=== PATIENT | male | born 1955 | race Caucasian/White ===

== ENCOUNTER 2018-01-20 22:54 | Inpatient (IN) | payer OTHER ==
[2018-01-21] MEDS: LORAZEPAM 2 MG INJ IV
[2018-01-21] MEDS ORDERED: ONDANSETRON 4 MG INJ IV
[2018-01-21 00:55] LABS: ADD MAN DIFF? NO
[2018-01-21 01:00] LABS: ABNORMAL IP MESSAGE 1; BASOPHILS % 0.6 % (0.0-2.0); EOSINOPHILS % 0.4 % (0.0-7.0); HEMATOCRIT 31.6 % (42.0-52.0); HEMOGLOBIN 10.7 g/dl (14.0-18.0); LYMPHOCYTES # 1.5 10^3/ul (0.8-2.9); MEAN CORPUSCULAR HEMOGLOBIN 37.5 pg (29.0-33.0); MEAN CORPUSCULAR HGB CONC 33.9 g/dl (32.0-37.0); MEAN CORPUSCULAR VOLUME 110.9 fl (82.0-101.0); MEAN PLATELET VOLUME 11.2 fl (7.4-10.4); MONOCYTE # 0.8 10^3/ul (0.3-0.9); NEUTROPHIL # 4.6 10^3/ul (1.6-7.5); NEUTROPHILS % 65.4 % (39.0-77.0); PLATELET COUNT 91 10^3/UL (140-415); POSITIVE DIFF @See below; RED BLOOD COUNT 2.85 10^6/ul (4.70-6.10); RED CELL DISTRIBUTION WIDTH 12.6 % (11.5-14.5)
[2018-01-21 01:15] LABS: IRON 61 ug/dl (35-150)
[2018-01-21 01:16] LABS: MAGNESIUM 2.3 mg/dl (1.7-2.5)
[2018-01-21 01:16] LABS: PHOSPHORUS 2.9 mg/dl (2.5-4.9)
[2018-01-21] MEDS: SOD CHLORIDE 0.9% 1,000 ML IV ×5 (01:19→21:00)
[2018-01-21 01:25] LABS: % IRON SATURATION 33 % SAT (22-52); TOTAL IRON BINDING CAPACITY 183 ug/dl (241-421)
[2018-01-21] MEDS: MULTIVITAMINS 10 ML, THIAMINE 100 MG, FOLIC ACID 1 MG in SOD CHLORIDE 0.9% 1,000 ML IVPB (09:17)
[2018-01-21] MEDS: PANTOPRAZOLE IV 80 MG in SOD CHLORIDE 0.9% 100 ML IV ×2 (11:01→21:31)
[2018-01-21] MEDS: CHLORDIAZEPOXIDE 25 MG CAP PO ×3 (11:07→22:33)
[2018-01-21] MEDS: SUCRALFATE 1 GM TAB PO ×2 (17:32→21:32)
[2018-01-22] MEDS: PANTOPRAZOLE IV 80 MG in SOD CHLORIDE 0.9% 100 ML IV ×3 (04:00→23:24)
[2018-01-22] MEDS: SOD CHLORIDE 0.9% 1,000 ML IV (05:59)
[2018-01-22 07:26] LABS: ADD MAN DIFF? NO
[2018-01-22 07:28] LABS: WHITE BLOOD COUNT 6.4 10^3/ul (4.8-10.8)
[2018-01-22 07:28] LABS: BASOPHILS % 0.5 % (0.0-2.0); EOSINOPHILS # 0.2 10^3/ul (0.0-0.5); EOSINOPHILS % 2.3 % (0.0-7.0); HEMATOCRIT 30.2 % (42.0-52.0); HEMOGLOBIN 9.8 g/dl (14.0-18.0); LYMPHOCYTES # 1.1 10^3/ul (0.8-2.9); LYMPHOCYTES % 16.7 % (15.0-51.0); MEAN CORPUSCULAR HGB CONC 32.5 g/dl (32.0-37.0); MEAN PLATELET VOLUME 10.9 fl (7.4-10.4); MONOCYTE # 0.6 10^3/ul (0.3-0.9); MONOCYTES % 9.7 % (0.0-11.0); NEUTROPHIL # 4.5 10^3/ul (1.6-7.5); NEUTROPHILS % 70.3 % (39.0-77.0); POSITIVE DIFF @See below; RED BLOOD COUNT 2.72 10^6/ul (4.70-6.10); RED CELL DISTRIBUTION WIDTH 12.6 % (11.5-14.5)
[2018-01-22 07:32] LABS: PLATELET COUNT 111 10^3/UL (140-415)
[2018-01-22 07:48] LABS: INR 0.97
[2018-01-22 08:07] LABS: ANION GAP 12 (8-16); BLOOD UREA NITROGEN 14 mg/dl (7-20); CALCIUM 8.2 mg/dl (8.4-10.2); CARBON DIOXIDE 18 mmol/L (21-31); CHLORIDE 113 mmol/L (97-110); CREATININE 0.54 mg/dl (0.61-1.24); MAGNESIUM 1.5 mg/dl (1.7-2.5); PHOSPHORUS 2.3 mg/dl (2.5-4.9); POTASSIUM 3.6 mmol/L (3.5-5.1); SODIUM 139 mmol/L (135-144)
[2018-01-22 08:10] LABS: GLUCOSE 47 mg/dl (70-220)
[2018-01-22] MEDS: CHLORDIAZEPOXIDE 25 MG CAP PO ×2 (08:15→19:05)
[2018-01-22] MEDS: SUCRALFATE 1 GM TAB PO ×4 (08:15→20:50)
[2018-01-22] MEDS: MULTIVITAMINS 10 ML, THIAMINE 100 MG, FOLIC ACID 1 MG in SOD CHLORIDE 0.9% 1,000 ML IVPB (11:41)
[2018-01-22] MEDS: D5W-0.45 NACL + KCL 20 MEQ 1,000 ML IV ×2 (13:26→20:52)
[2018-01-22] MEDS: CEFTRIAXONE 1 GM/50 ML (PMX) 50 ML IVPB (13:28)
[2018-01-22] MEDS: POTASSIUM PHOSPHATE 20 MEQ in SOD CHLORIDE 0.9% 250 ML IVPB (14:19)
[2018-01-22] MEDS: AZITHROMYCIN 500MG/NS (PMX) 250 ML IVPB (14:20)
[2018-01-22] MEDS: MAGNESIUM SULFATE 4 GM/100 ML 100 ML IVPB (20:51)
[2018-01-23] MEDS: CHLORDIAZEPOXIDE 25 MG CAP PO ×2 (05:17→14:28)
[2018-01-23] MEDS: SUCRALFATE 1 GM TAB PO ×4 (08:42→20:46)
[2018-01-23] MEDS: MULTIVITAMINS 10 ML, THIAMINE 100 MG, FOLIC ACID 1 MG in SOD CHLORIDE 0.9% 1,000 ML IVPB (08:42)
[2018-01-23 09:03] LABS: ADD MAN DIFF? NO
[2018-01-23 09:25] LABS: BASOPHILS % 0.5 % (0.0-2.0); EOSINOPHILS # 0.2 10^3/ul (0.0-0.5); HEMOGLOBIN 10.5 g/dl (14.0-18.0); LYMPHOCYTES # 0.8 10^3/ul (0.8-2.9); LYMPHOCYTES % 13.8 % (15.0-51.0); MEAN CORPUSCULAR HEMOGLOBIN 36.3 pg (29.0-33.0); MEAN CORPUSCULAR HGB CONC 32.8 g/dl (32.0-37.0); MEAN CORPUSCULAR VOLUME 110.7 fl (82.0-101.0); MEAN PLATELET VOLUME 11.2 fl (7.4-10.4); MONOCYTE # 0.6 10^3/ul (0.3-0.9); NEUTROPHIL # 4.1 10^3/ul (1.6-7.5); NEUTROPHILS % 71.5 % (39.0-77.0); PLATELET COUNT 119 10^3/UL (140-415); POSITIVE DIFF @See below; RED BLOOD COUNT 2.89 10^6/ul (4.70-6.10); RED CELL DISTRIBUTION WIDTH 12.2 % (11.5-14.5)
[2018-01-23 09:25] LABS: WHITE BLOOD COUNT 5.7 10^3/ul (4.8-10.8)
[2018-01-23 09:37] LABS: ALANINE AMINOTRANSFERASE 27 IU/L (13-69); ALBUMIN 2.2 g/dl (3.3-4.9); ALKALINE PHOSPHATASE 55 IU/L (42-121); ANION GAP 10 (8-16); ASPARTATE AMINO TRANSFERASE 35 IU/L (15-46); BILIRUBIN,INDIRECT 0.6 mg/dl (0-1.1); BILIRUBIN,TOTAL 0.6 mg/dl (0.2-1.3); BLOOD UREA NITROGEN 5 mg/dl (7-20); CARBON DIOXIDE 22 mmol/L (21-31); CHLORIDE 109 mmol/L (97-110); CREATININE 0.39 mg/dl (0.61-1.24); GLUCOSE 105 mg/dl (70-220); POTASSIUM 3.6 mmol/L (3.5-5.1); SODIUM 137 mmol/L (135-144); TOTAL PROTEIN 4.4 g/dl (6.1-8.1)
[2018-01-23] MEDS: PANTOPRAZOLE IV 80 MG in SOD CHLORIDE 0.9% 100 ML IV (10:32)
[2018-01-23] MEDS: CEFTRIAXONE 1 GM/50 ML (PMX) 50 ML IVPB (14:28)
[2018-01-23] MEDS: AZITHROMYCIN 500MG/NS (PMX) 250 ML IVPB (14:57)
[2018-01-23] MEDS: HYDROCODONE/APAP (5/325) TAB PO ×2 (14:58→20:46)
[2018-01-23] MEDS ORDERED: ACETAMINOPHEN 325 MG TAB PO (15:00)
[2018-01-23] MEDS ORDERED: morphine 2 MG INJ IV (15:00)
[2018-01-23] MEDS: D5W-0.45 NACL + KCL 20 MEQ 1,000 ML IV ×2 (17:37)
[2018-01-23] MEDS: PANTOPRAZOLE (EC) 40 MG TAB PO (17:37)
[2018-01-24] MEDS: PANTOPRAZOLE (EC) 40 MG TAB PO ×2 (05:29→18:27)
[2018-01-24] MEDS: D5W-0.45 NACL + KCL 20 MEQ 1,000 ML IV ×2 (05:29→15:30)
[2018-01-24] MEDS: CHLORDIAZEPOXIDE 25 MG CAP PO ×2 (05:29→20:50)
[2018-01-24] MEDS: HYDROCODONE/APAP (5/325) TAB PO ×3 (05:29→22:53)
[2018-01-24 07:50] LABS: ADD MAN DIFF? NO
[2018-01-24 08:04] LABS: WHITE BLOOD COUNT 5.8 10^3/ul (4.8-10.8)
[2018-01-24 08:04] LABS: BASOPHILS % 0.7 % (0.0-2.0); EOSINOPHILS # 0.3 10^3/ul (0.0-0.5); EOSINOPHILS % 5.2 % (0.0-7.0); HEMATOCRIT 32.7 % (42.0-52.0); LYMPHOCYTES # 1.2 10^3/ul (0.8-2.9); MEAN CORPUSCULAR HEMOGLOBIN 35.9 pg (29.0-33.0); MEAN CORPUSCULAR HGB CONC 33.6 g/dl (32.0-37.0); MEAN CORPUSCULAR VOLUME 106.9 fl (82.0-101.0); MEAN PLATELET VOLUME 11.7 fl (7.4-10.4); MONOCYTE # 0.7 10^3/ul (0.3-0.9); MONOCYTES % 12.2 % (0.0-11.0); NEUTROPHIL # 3.6 10^3/ul (1.6-7.5); NEUTROPHILS % 61.2 % (39.0-77.0); PLATELET COUNT 116 10^3/UL (140-415); POSITIVE DIFF @See below; RED BLOOD COUNT 3.06 10^6/ul (4.70-6.10); RED CELL DISTRIBUTION WIDTH 12.1 % (11.5-14.5)
[2018-01-24 08:25] LABS: ANION GAP 9 (8-16); BLOOD UREA NITROGEN 3 mg/dl (7-20); CALCIUM 7.9 mg/dl (8.4-10.2); CARBON DIOXIDE 22 mmol/L (21-31); CHLORIDE 109 mmol/L (97-110); CREATININE 0.46 mg/dl (0.61-1.24); GLUCOSE 86 mg/dl (70-220); MAGNESIUM 1.4 mg/dl (1.7-2.5); PHOSPHORUS 2.1 mg/dl (2.5-4.9); POTASSIUM 4.1 mmol/L (3.5-5.1); SODIUM 136 mmol/L (135-144)
[2018-01-24] MEDS: MULTIVITAMINS 10 ML, THIAMINE 100 MG, FOLIC ACID 1 MG in SOD CHLORIDE 0.9% 1,000 ML IVPB (09:08)
[2018-01-24] MEDS: SUCRALFATE 1 GM TAB PO ×4 (09:08→21:32)
[2018-01-24] MEDS: CEFTRIAXONE 1 GM/50 ML (PMX) 50 ML IVPB (13:47)
[2018-01-24] MEDS: AZITHROMYCIN 500MG/NS (PMX) 250 ML IVPB (14:41)
[2018-01-24 19:52] LABS: OCCULT BLOOD STOOL POSITIVE (NEGATIVE)
[2018-01-24] MEDS: morphine LIQ (10 MG/5 ML) CUP PO (20:51)
[2018-01-25] MEDS: morphine LIQ (10 MG/5 ML) CUP PO ×4 (01:01→20:38)
[2018-01-25] MEDS: D5W-0.45 NACL + KCL 20 MEQ 1,000 ML IV ×3 (01:30→21:30)
[2018-01-25] MEDS: CHLORDIAZEPOXIDE 25 MG CAP PO ×2 (03:12→22:39)
[2018-01-25] MEDS: HYDROCODONE/APAP (5/325) TAB PO ×2 (04:53→17:24)
[2018-01-25] MEDS: PANTOPRAZOLE (EC) 40 MG TAB PO ×2 (05:49→17:24)
[2018-01-25] MEDS: SUCRALFATE 1 GM TAB PO ×4 (08:47→20:38)
[2018-01-25] MEDS: MULTIVITAMINS 10 ML, THIAMINE 100 MG, FOLIC ACID 1 MG in SOD CHLORIDE 0.9% 1,000 ML IVPB (08:48)
[2018-01-25] MEDS: CEFTRIAXONE 1 GM/50 ML (PMX) 50 ML IVPB (13:51)
[2018-01-25] MEDS: AZITHROMYCIN 500MG/NS (PMX) 250 ML IVPB (14:57)
[2018-01-26] MEDS: HYDROCODONE/APAP (5/325) TAB PO ×3 (03:18→20:14)
[2018-01-26] MEDS: morphine LIQ (10 MG/5 ML) CUP PO ×3 (06:10→16:40)
[2018-01-26] MEDS: PANTOPRAZOLE (EC) 40 MG TAB PO ×2 (06:10→17:58)
[2018-01-26] MEDS: SUCRALFATE 1 GM TAB PO ×4 (08:43→20:13)
[2018-01-26] MEDS: D5W-0.45 NACL + KCL 20 MEQ 1,000 ML IV ×2 (08:43→17:30)
[2018-01-26] MEDS: MULTIVITAMINS 10 ML, THIAMINE 100 MG, FOLIC ACID 1 MG in SOD CHLORIDE 0.9% 1,000 ML IVPB (09:57)
[2018-01-26] MEDS: CEFTRIAXONE 1 GM/50 ML (PMX) 50 ML IVPB (12:21)
[2018-01-26] MEDS: AZITHROMYCIN 500MG/NS (PMX) 250 ML IVPB (14:59)
[2018-01-27] MEDS: morphine LIQ (10 MG/5 ML) CUP PO ×4 (02:33→21:02)
[2018-01-27] MEDS: PANTOPRAZOLE (EC) 40 MG TAB PO ×2 (05:36→16:58)
[2018-01-27] MEDS: HYDROCODONE/APAP (5/325) TAB PO ×2 (05:36→16:58)
[2018-01-27] MEDS: D5W-0.45 NACL + KCL 20 MEQ 1,000 ML IV (05:37)
[2018-01-27] MEDS: SUCRALFATE 1 GM TAB PO ×4 (09:03→21:01)
[2018-01-27] MEDS: MULTIVITAMINS 10 ML, THIAMINE 100 MG, FOLIC ACID 1 MG in SOD CHLORIDE 0.9% 1,000 ML IVPB (09:03)
[2018-01-27] MEDS: CEFTRIAXONE 1 GM/50 ML (PMX) 50 ML IVPB (12:30)
[2018-01-27] MEDS: LORAZEPAM 1 MG TAB PO (18:49)
[2018-01-28] MEDS: HYDROCODONE/APAP (5/325) TAB PO ×3 (02:15→16:20)
[2018-01-28] MEDS: PANTOPRAZOLE (EC) 40 MG TAB PO ×2 (05:41→17:07)
[2018-01-28] MEDS: morphine LIQ (10 MG/5 ML) CUP PO ×2 (05:41→18:42)
[2018-01-28] MEDS: LEVALBUTEROL (NEB) 0.63 MG/3 ML AMP HHN ×2 (05:56→08:11)
[2018-01-28] MEDS: MULTIVITAMINS 10 ML, THIAMINE 100 MG, FOLIC ACID 1 MG in SOD CHLORIDE 0.9% 1,000 ML IVPB (09:11)
[2018-01-28] MEDS: SUCRALFATE 1 GM TAB PO ×4 (09:11→22:00)
[2018-01-28] MEDS: FUROSEMIDE 20 MG INJ IV (18:38)
[2018-01-29] MEDS: HYDROCODONE/APAP (5/325) TAB PO ×3 (05:10→23:43)
[2018-01-29] MEDS: PANTOPRAZOLE (EC) 40 MG TAB PO ×2 (05:10→16:53)
[2018-01-29 07:19] LABS: ADD MAN DIFF? NO
[2018-01-29 07:23] LABS: WHITE BLOOD COUNT 7.4 10^3/ul (4.8-10.8)
[2018-01-29 07:23] LABS: BASOPHIL # 0.1 10^3/ul (0.0-0.1); BASOPHILS % 0.7 % (0.0-2.0); EOSINOPHILS # 0.4 10^3/ul (0.0-0.5); EOSINOPHILS % 4.9 % (0.0-7.0); HEMATOCRIT 28.6 % (42.0-52.0); HEMOGLOBIN 9.6 g/dl (14.0-18.0); IMMATURE GRANS #M 0.02 10^3/ul; IMMATURE GRANS % (M) 0.3 %; LYMPHOCYTES # 1.2 10^3/ul (0.8-2.9); LYMPHOCYTES % 16.3 % (15.0-51.0); MEAN CORPUSCULAR HEMOGLOBIN 36.8 pg (29.0-33.0); MEAN CORPUSCULAR HGB CONC 33.6 g/dl (32.0-37.0); MEAN CORPUSCULAR VOLUME 109.6 fl (82.0-101.0); MEAN PLATELET VOLUME 10.1 fl (7.4-10.4); MONOCYTE # 0.9 10^3/ul (0.3-0.9); MONOCYTES % 12.5 % (0.0-11.0); NEUTROPHIL # 4.8 10^3/ul (1.6-7.5); NEUTROPHILS % 65.3 % (39.0-77.0); PLATELET COUNT 259 10^3/UL (140-415); RED BLOOD COUNT 2.61 10^6/ul (4.70-6.10); RED CELL DISTRIBUTION WIDTH 12.2 % (11.5-14.5)
[2018-01-29 07:45] LABS: ANION GAP 5 (8-16); BLOOD UREA NITROGEN 5 mg/dl (7-20); CALCIUM 8.3 mg/dl (8.4-10.2); CARBON DIOXIDE 34 mmol/L (21-31); CHLORIDE 101 mmol/L (97-110); CREATININE 0.51 mg/dl (0.61-1.24); GLUCOSE 89 mg/dl (70-220); POTASSIUM 3.3 mmol/L (3.5-5.1); SODIUM 137 mmol/L (135-144)
[2018-01-29] MEDS: SUCRALFATE 1 GM TAB PO ×4 (09:04→20:23)
[2018-01-29] MEDS: POTASSIUM CHLORIDE (SR) 20 MEQ TAB PO (10:56)
[2018-01-29] MEDS: FUROSEMIDE 20 MG INJ IV (12:21)
[2018-01-29] MEDS: morphine LIQ (10 MG/5 ML) CUP PO ×2 (14:26→20:23)
[2018-01-30] MEDS: PANTOPRAZOLE (EC) 40 MG TAB PO ×2 (05:57→17:16)
[2018-01-30] MEDS: morphine LIQ (10 MG/5 ML) CUP PO ×3 (05:58→22:04)
[2018-01-30] MEDS: SUCRALFATE 1 GM TAB PO ×4 (08:20→22:03)
[2018-01-30] MEDS: HYDROCODONE/APAP (5/325) TAB PO (16:04)
[2018-01-31] MEDS: PANTOPRAZOLE (EC) 40 MG TAB PO (06:38)
[2018-01-31] MEDS: HYDROCODONE/APAP (5/325) TAB PO (06:38)
[2018-01-31] MEDS: SUCRALFATE 1 GM TAB PO ×2 (08:40→11:57)
[2018-01-31] MEDS: morphine LIQ (10 MG/5 ML) CUP PO (11:57)
== END 2018-01-31 15:30 | DRG 377 ==
LOC: PP2 01-26 02:19 → TEL 01-28 12:48
PROVIDERS: Hospitalist
DX: K92.0 Hematemesis (principal); J18.9 Pneumonia, unspecified organism; E44.0 Moderate protein-calorie malnutrition; Z68.1 Body mass index [BMI] 19.9 or less, adult; F10.239 Alcohol dependence with withdrawal, unspecified; F10.10 Alcohol abuse, uncomplicated; K92.1 Melena; I95.9 Hypotension, unspecified; I10 Essential (primary) hypertension; D69.6 Thrombocytopenia, unspecified; J44.9 Chronic obstructive pulmonary disease, unspecified; Z72.0 Tobacco use; E86.0 Dehydration; F60.3 Borderline personality disorder; Z79.1 Long term (current) use of non-steroidal anti-inflammatories (NSAID); D53.9 Nutritional anemia, unspecified; R26.9 Unspecified abnormalities of gait and mobility; I11.0 Hypertensive heart disease with heart failure; I50.9 Heart failure, unspecified
CPT/HCPCS: 71045; 71046; 76705; 80048; 80053; 82270; 82728; 82962; 83540; 83735; 84100; 84443; 85025; 85610; 87081; 93005; 93306; 93971; 94640; 94664; 97110; 97116; 97163; 97530

== ENCOUNTER 2018-07-03 19:15 | Inpatient (IN) | payer OTHER ==
[2018-07-03] MEDS ORDERED: NACL 0.9% 3 ML SYG IV (21:30)
[2018-07-03] MEDS ORDERED: ACETAMINOPHEN 325 MG TAB PO (21:30)
[2018-07-03] MEDS: METHYLPREDNISOLONE 40 MG INJ IV ×2 (21:34→22:00)
[2018-07-03] MEDS: morphine SULFATE/PF (2 MG/2 ML) SYG IV (21:35)
[2018-07-03] MEDS: ALBUTEROL/IPRATROPIUM (NEB) 3 ML AMP HHN (21:52)
[2018-07-03 22:04] LABS: ADD MAN DIFF? NO
[2018-07-03 22:06] LABS: WHITE BLOOD COUNT 6.9 10^3/ul (4.8-10.8)
[2018-07-03 22:06] LABS: ABNORMAL IP MESSAGE 1; BASOPHILS % 0.1 % (0.0-2.0); HEMATOCRIT 39.4 % (42.0-52.0); LYMPHOCYTES # 0.5 10^3/ul (0.8-2.9); LYMPHOCYTES % 6.8 % (15.0-51.0); MEAN CORPUSCULAR HEMOGLOBIN 34.6 pg (29.0-33.0); MEAN CORPUSCULAR VOLUME 104.8 fl (82.0-101.0); MEAN PLATELET VOLUME 10.4 fl (7.4-10.4); MONOCYTE # 0.5 10^3/ul (0.3-0.9); MONOCYTES % 7.7 % (0.0-11.0); NEUTROPHIL # 5.9 10^3/ul (1.6-7.5); NEUTROPHILS % 85.3 % (39.0-77.0); PLATELET COUNT 187 10^3/UL (140-415); POSITIVE DIFF @See below; RED BLOOD COUNT 3.76 10^6/ul (4.70-6.10); RED CELL DISTRIBUTION WIDTH 11.8 % (11.5-14.5)
[2018-07-03 22:23] LABS: HEMOGLOBIN A1C 4.8 % (0-5.9)
[2018-07-03 22:29] LABS: ALANINE AMINOTRANSFERASE 22 IU/L (13-69); ALBUMIN 3.8 g/dl (3.3-4.9); ALBUMIN/GLOBULIN RATIO 1.22; ALKALINE PHOSPHATASE 65 IU/L (42-121); ANION GAP 12 (5-13); ASPARTATE AMINO TRANSFERASE 37 IU/L (15-46); BILIRUBIN,INDIRECT 0.5 mg/dl (0-1.1); BILIRUBIN,TOTAL 0.5 mg/dl (0.2-1.3); BLOOD UREA NITROGEN 44 mg/dl (7-20); CALCIUM 9.7 mg/dl (8.4-10.2); CARBON DIOXIDE 37 mmol/L (21-31); CHLORIDE 85 mmol/L (97-110); CHOL/HDL RATIO 3.3 RATIO; CHOLESTEROL 139 mg/dl (100-200); CREATININE 1.03 mg/dl (0.61-1.24); Estimated GFR > 60 mL/min (>60); GLUCOSE 102 mg/dl (70-220); HDL CHOLESTEROL 41 mg/dl (30-78); LDL CHOLESTEROL,CALCULATED 74 mg/dl; LIPASE 33 U/L (23-300); MAGNESIUM 2.2 mg/dl (1.7-2.5); POTASSIUM 3.8 mmol/L (3.5-5.1); SODIUM 134 mmol/L (135-144); TOTAL PROTEIN 6.9 g/dl (6.1-8.1); TRIGLYCERIDES 119 mg/dl (0-149)
[2018-07-03 22:58] LABS: THYROID STIMULATING HORMONE 0.833 MIU/L (0.465-4.680)
[2018-07-04] MEDS: ALBUTEROL/IPRATROPIUM (NEB) 3 ML AMP HHN ×6 (01:00→21:00)
[2018-07-04] MEDS: morphine SULFATE/PF (2 MG/2 ML) SYG IV ×5 (04:00→20:33)
[2018-07-04] MEDS: METHYLPREDNISOLONE 40 MG INJ IV ×3 (06:04→21:37)
[2018-07-04] MEDS: SOD CHLORIDE 0.9% 500 ML IV (06:04)
[2018-07-04] MEDS: LEVOFLOXACIN 750MG/D5W (PMX) 150 ML IVPB (07:03)
[2018-07-04] MEDS: PANTOPRAZOLE 40 MG INJ IV (10:41)
[2018-07-04] MEDS: IOHEXOL 14.3 MG(I)/ML (ADULT) BTL PO (10:59)
[2018-07-04] MEDS: IOHEXOL 300MG/ML 150 ML BTL (14:07)
[2018-07-04] MEDS: SOD CHLORIDE 0.9% 100 ML (14:11)
[2018-07-04] MEDS: ENOXAPARIN 40 MG/0.4 ML SYG SC (15:24)
[2018-07-04] MEDS: COLLAGENASE 5 GM (UD JAR) TOP (20:56)
[2018-07-05] MEDS: ALBUTEROL/IPRATROPIUM (NEB) 3 ML AMP HHN ×5 (01:00→21:00)
[2018-07-05] MEDS: morphine SULFATE/PF (2 MG/2 ML) SYG IV ×5 (02:51→20:27)
[2018-07-05] MEDS: LEVOFLOXACIN 750MG/D5W (PMX) 150 ML IVPB (05:07)
[2018-07-05] MEDS: METHYLPREDNISOLONE 40 MG INJ IV ×3 (05:08→21:14)
[2018-07-05] MEDS: PANTOPRAZOLE 40 MG INJ IV (05:08)
[2018-07-05 06:53] LABS: ADD MAN DIFF? NO
[2018-07-05 06:58] LABS: ABNORMAL IP MESSAGE 1; HEMATOCRIT 32.9 % (42.0-52.0); HEMOGLOBIN 11.1 g/dl (14.0-18.0); LYMPHOCYTES # 0.3 10^3/ul (0.8-2.9); MEAN CORPUSCULAR HGB CONC 33.7 g/dl (32.0-37.0); MEAN CORPUSCULAR VOLUME 103.8 fl (82.0-101.0); MEAN PLATELET VOLUME 11.4 fl (7.4-10.4); MONOCYTE # 0.5 10^3/ul (0.3-0.9); MONOCYTES % 5.4 % (0.0-11.0); NEUTROPHIL # 7.7 10^3/ul (1.6-7.5); NEUTROPHILS % 90.2 % (39.0-77.0); PLATELET COUNT 187 10^3/UL (140-415); POSITIVE DIFF @See below; RED BLOOD COUNT 3.17 10^6/ul (4.70-6.10); RED CELL DISTRIBUTION WIDTH 11.1 % (11.5-14.5)
[2018-07-05 06:58] LABS: WHITE BLOOD COUNT 8.5 10^3/ul (4.8-10.8)
[2018-07-05 07:26] LABS: BLOOD UREA NITROGEN 19 mg/dl (7-20); CALCIUM 9.3 mg/dl (8.4-10.2); CHLORIDE 87 mmol/L (97-110); CREATININE 0.67 mg/dl (0.61-1.24); Estimated GFR > 60 mL/min (>60); GLUCOSE 148 mg/dl (70-220); POTASSIUM 3.7 mmol/L (3.5-5.1); SODIUM 134 mmol/L (135-144)
[2018-07-05 07:35] LABS: ANION GAP 9 (5-13); CARBON DIOXIDE 38 mmol/L (21-31)
[2018-07-05] MEDS: ENOXAPARIN 40 MG/0.4 ML SYG SC (08:25)
[2018-07-05] MEDS: POVIDONE IODINE 10% 28.4 GM OINT TOP (08:26)
[2018-07-05] MEDS: COLLAGENASE 5 GM (UD JAR) TOP (08:26)
[2018-07-05] MEDS: DIATR MEGLU/DIATRIZOATE SODIUM 120 ML BTL (11:49)
[2018-07-05] MEDS: BISACODYL (EC) 5 MG TAB PO (16:55)
[2018-07-05] MEDS: GUAIFENESIN 20 MG/ML 5ML CUP PO (16:55)
[2018-07-05] MEDS: POTASSIUM CHLORIDE 10 MEQ in DEXTROSE 5%-0.9% NACL 1,000 ML IV (17:59)
[2018-07-05] MEDS: DOCUSATE SODIUM 100 MG CAP PO (21:14)
[2018-07-06] MEDS: CALCIUM CARBONATE 500 MG CHEW TAB PO ×2 (00:23→03:19)
[2018-07-06] MEDS: morphine SULFATE/PF (2 MG/2 ML) SYG IV ×4 (00:23→12:47)
[2018-07-06] MEDS: ALBUTEROL/IPRATROPIUM (NEB) 3 ML AMP HHN ×6 (01:00→21:00)
[2018-07-06] MEDS ORDERED: CALCIUM CARBONATE 500 MG CHEW TAB (03:17)
[2018-07-06] MEDS: BISACODYL (EC) 5 MG TAB PO (03:22)
[2018-07-06] MEDS: POTASSIUM CHLORIDE 10 MEQ in DEXTROSE 5%-0.9% NACL 1,000 ML IV ×3 (03:42→14:42)
[2018-07-06] MEDS: METHYLPREDNISOLONE 40 MG INJ IV ×3 (05:18→22:00)
[2018-07-06] MEDS: LEVOFLOXACIN 750MG/D5W (PMX) 150 ML IVPB (05:18)
[2018-07-06] MEDS: PANTOPRAZOLE 40 MG INJ IV (05:18)
[2018-07-06 06:06] LABS: ADD MAN DIFF? NO
[2018-07-06 06:09] LABS: WHITE BLOOD COUNT 11.3 10^3/ul (4.8-10.8)
[2018-07-06 06:09] LABS: HEMATOCRIT 34.1 % (42.0-52.0); HEMOGLOBIN 11.2 g/dl (14.0-18.0); LYMPHOCYTES # 0.7 10^3/ul (0.8-2.9); LYMPHOCYTES % 6.3 % (15.0-51.0); MEAN CORPUSCULAR HEMOGLOBIN 34.4 pg (29.0-33.0); MEAN CORPUSCULAR HGB CONC 32.8 g/dl (32.0-37.0); MEAN CORPUSCULAR VOLUME 104.6 fl (82.0-101.0); MEAN PLATELET VOLUME 11.1 fl (7.4-10.4); MONOCYTE # 0.8 10^3/ul (0.3-0.9); NEUTROPHIL # 9.7 10^3/ul (1.6-7.5); NEUTROPHILS % 86.3 % (39.0-77.0); PLATELET COUNT 186 10^3/UL (140-415); RED BLOOD COUNT 3.26 10^6/ul (4.70-6.10); RED CELL DISTRIBUTION WIDTH 11.1 % (11.5-14.5)
[2018-07-06 06:26] LABS: BLOOD UREA NITROGEN 14 mg/dl (7-20); CALCIUM 9.2 mg/dl (8.4-10.2); CHLORIDE 91 mmol/L (97-110); CREATININE 0.64 mg/dl (0.61-1.24); Estimated GFR > 60 mL/min (>60); GLUCOSE 125 mg/dl (70-220); POTASSIUM 3.6 mmol/L (3.5-5.1); SODIUM 135 mmol/L (135-144)
[2018-07-06 06:29] LABS: MAGNESIUM 1.6 mg/dl (1.7-2.5)
[2018-07-06 06:33] LABS: ANION GAP 7 (5-13)
[2018-07-06 06:39] LABS: CARBON DIOXIDE 37 mmol/L (21-31)
[2018-07-06] MEDS: COLLAGENASE 5 GM (UD JAR) TOP (08:45)
[2018-07-06] MEDS: POVIDONE IODINE 10% 28.4 GM OINT TOP (08:46)
[2018-07-06] MEDS: ENOXAPARIN 40 MG/0.4 ML SYG SC (08:57)
[2018-07-06] MEDS: DOCUSATE SODIUM 100 MG CAP PO (10:23)
[2018-07-06] MEDS: MAGNESIUM SULFATE 2 GM/50 ML 50 ML IVPB (15:44)
[2018-07-06] MEDS: HYDROmorphONE 0.5 MG/0.5 ML SYG IV ×2 (16:54→21:08)
[2018-07-06] MEDS: DIATR MEGLU/DIATRIZOATE SODIUM 120 ML BTL (17:53)
[2018-07-07] MEDS: HYDROmorphONE 0.5 MG/0.5 ML SYG IV ×6 (00:58→21:06)
[2018-07-07] MEDS: ALBUTEROL/IPRATROPIUM (NEB) 3 ML AMP HHN ×6 (01:00→21:00)
[2018-07-07] MEDS: POTASSIUM CHLORIDE 10 MEQ in DEXTROSE 5%-0.9% NACL 1,000 ML IV ×2 (02:41→12:54)
[2018-07-07] MEDS: PANTOPRAZOLE 40 MG INJ IV (05:36)
[2018-07-07] MEDS: METHYLPREDNISOLONE 40 MG INJ IV ×3 (05:37→22:11)
[2018-07-07] MEDS: LEVOFLOXACIN 750MG/D5W (PMX) 150 ML IVPB (05:37)
[2018-07-07 06:12] LABS: ADD MAN DIFF? NO
[2018-07-07 06:18] LABS: WHITE BLOOD COUNT 8.9 10^3/ul (4.8-10.8)
[2018-07-07 06:18] LABS: BASOPHILS % 0.1 % (0.0-2.0); HEMATOCRIT 36.3 % (42.0-52.0); HEMOGLOBIN 11.7 g/dl (14.0-18.0); LYMPHOCYTES # 0.8 10^3/ul (0.8-2.9); LYMPHOCYTES % 8.7 % (15.0-51.0); MEAN CORPUSCULAR HEMOGLOBIN 34.1 pg (29.0-33.0); MEAN CORPUSCULAR HGB CONC 32.2 g/dl (32.0-37.0); MEAN CORPUSCULAR VOLUME 105.8 fl (82.0-101.0); MEAN PLATELET VOLUME 10.8 fl (7.4-10.4); MONOCYTES % 11.6 % (0.0-11.0); NEUTROPHIL # 7.1 10^3/ul (1.6-7.5); NEUTROPHILS % 79.4 % (39.0-77.0); PLATELET COUNT 177 10^3/UL (140-415); RED BLOOD COUNT 3.43 10^6/ul (4.70-6.10); RED CELL DISTRIBUTION WIDTH 11.2 % (11.5-14.5)
[2018-07-07 06:52] LABS: ANION GAP 3 (5-13); BLOOD UREA NITROGEN 12 mg/dl (7-20); CARBON DIOXIDE 34 mmol/L (21-31); CHLORIDE 97 mmol/L (97-110); CREATININE 0.56 mg/dl (0.61-1.24); Estimated GFR > 60 mL/min (>60); GLUCOSE 125 mg/dl (70-220); POTASSIUM 3.6 mmol/L (3.5-5.1); SODIUM 134 mmol/L (135-144)
[2018-07-07] MEDS: COLLAGENASE 5 GM (UD JAR) TOP (08:59)
[2018-07-07] MEDS: POVIDONE IODINE 10% 28.4 GM OINT TOP (09:00)
[2018-07-07] MEDS: ENOXAPARIN 40 MG/0.4 ML SYG SC (09:30)
[2018-07-08] MEDS: POTASSIUM CHLORIDE 10 MEQ in DEXTROSE 5%-0.9% NACL 1,000 ML IV ×3 (00:06→16:30)
[2018-07-08] MEDS: HYDROmorphONE 0.5 MG/0.5 ML SYG IV ×6 (01:10→21:06)
[2018-07-08] MEDS: ALBUTEROL/IPRATROPIUM (NEB) 3 ML AMP HHN ×6 (01:19→20:01)
[2018-07-08] MEDS: LEVOFLOXACIN 750MG/D5W (PMX) 150 ML IVPB (05:34)
[2018-07-08] MEDS: PANTOPRAZOLE 40 MG INJ IV (05:34)
[2018-07-08 06:02] LABS: ADD MAN DIFF? NO
[2018-07-08 06:10] LABS: HEMATOCRIT 36.6 % (42.0-52.0); HEMOGLOBIN 12.1 g/dl (14.0-18.0); LYMPHOCYTES # 0.8 10^3/ul (0.8-2.9); LYMPHOCYTES % 9.9 % (15.0-51.0); MEAN CORPUSCULAR HEMOGLOBIN 35.1 pg (29.0-33.0); MEAN CORPUSCULAR HGB CONC 33.1 g/dl (32.0-37.0); MEAN CORPUSCULAR VOLUME 106.1 fl (82.0-101.0); MEAN PLATELET VOLUME 10.9 fl (7.4-10.4); MONOCYTE # 0.9 10^3/ul (0.3-0.9); MONOCYTES % 10.5 % (0.0-11.0); NEUTROPHIL # 6.5 10^3/ul (1.6-7.5); NEUTROPHILS % 79.2 % (39.0-77.0); PLATELET COUNT 184 10^3/UL (140-415); RED BLOOD COUNT 3.45 10^6/ul (4.70-6.10); RED CELL DISTRIBUTION WIDTH 11.3 % (11.5-14.5)
[2018-07-08 06:10] LABS: WHITE BLOOD COUNT 8.2 10^3/ul (4.8-10.8)
[2018-07-08 06:32] LABS: ANION GAP 3 (5-13); BLOOD UREA NITROGEN 10 mg/dl (7-20); CALCIUM 8.7 mg/dl (8.4-10.2); CARBON DIOXIDE 31 mmol/L (21-31); CHLORIDE 101 mmol/L (97-110); CREATININE 0.52 mg/dl (0.61-1.24); Estimated GFR > 60 mL/min (>60); GLUCOSE 103 mg/dl (70-220); MAGNESIUM 1.7 mg/dl (1.7-2.5); POTASSIUM 3.2 mmol/L (3.5-5.1); SODIUM 135 mmol/L (135-144)
[2018-07-08] MEDS: POVIDONE IODINE 10% 28.4 GM OINT TOP (09:17)
[2018-07-08] MEDS: COLLAGENASE 5 GM (UD JAR) TOP (09:17)
[2018-07-08] MEDS: ENOXAPARIN 40 MG/0.4 ML SYG SC (10:29)
[2018-07-08] MEDS: METHYLPREDNISOLONE 40 MG INJ IV ×2 (13:06→21:06)
[2018-07-08] MEDS: POTASSIUM CHLORIDE 50 ML IVPB ×2 (16:50→19:22)
[2018-07-09] MEDS: ALBUTEROL/IPRATROPIUM (NEB) 3 ML AMP HHN ×6 (01:00→20:10)
[2018-07-09] MEDS: HYDROmorphONE 0.5 MG/0.5 ML SYG IV ×6 (02:25→22:15)
[2018-07-09] MEDS: PANTOPRAZOLE 40 MG INJ IV (06:05)
[2018-07-09] MEDS: POTASSIUM CHLORIDE 10 MEQ in DEXTROSE 5%-0.9% NACL 1,000 ML IV ×2 (06:05→21:08)
[2018-07-09 07:10] LABS: ANION GAP 6 (5-13); BLOOD UREA NITROGEN 11 mg/dl (7-20); CALCIUM 9.2 mg/dl (8.4-10.2); CARBON DIOXIDE 24 mmol/L (21-31); CHLORIDE 107 mmol/L (97-110); Estimated GFR > 60 mL/min (>60); GLUCOSE 86 mg/dl (70-220); MAGNESIUM 1.7 mg/dl (1.7-2.5); POTASSIUM 4.2 mmol/L (3.5-5.1); SODIUM 137 mmol/L (135-144)
[2018-07-09] MEDS: ENOXAPARIN 40 MG/0.4 ML SYG SC (09:12)
[2018-07-09] MEDS: COLLAGENASE 5 GM (UD JAR) TOP (09:13)
[2018-07-09] MEDS: METHYLPREDNISOLONE 40 MG INJ IV ×2 (09:13→21:08)
[2018-07-09] MEDS: CALCIUM CARBONATE 500 MG CHEW TAB PO (09:27)
[2018-07-09] MEDS: POVIDONE IODINE 10% 28.4 GM OINT TOP (10:53)
[2018-07-09] MEDS: INFLUENZA VIRUS VACCINE 0.5 ML (DISPENSING) IM* (14:09)
[2018-07-09] MEDS: DIATR MEGLU/DIATRIZOATE SODIUM 120 ML BTL ×3 (16:58)
[2018-07-09] MEDS: MAGNESIUM SULFATE 2 GM/50 ML 50 ML IVPB (18:12)
[2018-07-09] MEDS: FLUTICASONE/VILANTEROL 100-25 INH (18:14)
[2018-07-10] MEDS: ZOLPIDEM 5 MG TAB PO (01:08)
[2018-07-10] MEDS: ALBUTEROL/IPRATROPIUM (NEB) 3 ML AMP HHN ×6 (01:40→20:12)
[2018-07-10] MEDS: HYDROmorphONE 0.5 MG/0.5 ML SYG IV ×5 (02:29→20:18)
[2018-07-10] MEDS: PANTOPRAZOLE 40 MG INJ IV (05:41)
[2018-07-10 06:00] LABS: ADD MAN DIFF? NO
[2018-07-10 06:17] LABS: BASOPHILS % 0.1 % (0.0-2.0); EOSINOPHILS % 0.1 % (0.0-7.0); HEMATOCRIT 37.3 % (42.0-52.0); HEMOGLOBIN 12.3 g/dl (14.0-18.0); LYMPHOCYTES # 0.8 10^3/ul (0.8-2.9); LYMPHOCYTES % 10.9 % (15.0-51.0); MEAN CORPUSCULAR HEMOGLOBIN 34.7 pg (29.0-33.0); MEAN CORPUSCULAR VOLUME 105.4 fl (82.0-101.0); MEAN PLATELET VOLUME 10.9 fl (7.4-10.4); MONOCYTE # 0.4 10^3/ul (0.3-0.9); MONOCYTES % 5.7 % (0.0-11.0); NEUTROPHIL # 5.8 10^3/ul (1.6-7.5); NEUTROPHILS % 82.5 % (39.0-77.0); PLATELET COUNT 193 10^3/UL (140-415); RED BLOOD COUNT 3.54 10^6/ul (4.70-6.10); RED CELL DISTRIBUTION WIDTH 11.4 % (11.5-14.5)
[2018-07-10 06:17] LABS: WHITE BLOOD COUNT 7.1 10^3/ul (4.8-10.8)
[2018-07-10 06:31] LABS: ANION GAP 4 (5-13); BLOOD UREA NITROGEN 10 mg/dl (7-20); CALCIUM 8.3 mg/dl (8.4-10.2); CARBON DIOXIDE 29 mmol/L (21-31); CHLORIDE 104 mmol/L (97-110); CREATININE 0.53 mg/dl (0.61-1.24); Estimated GFR > 60 mL/min (>60); GLUCOSE 105 mg/dl (70-220); POTASSIUM 3.6 mmol/L (3.5-5.1); SODIUM 137 mmol/L (135-144)
[2018-07-10] MEDS: ENOXAPARIN 40 MG/0.4 ML SYG SC (08:51)
[2018-07-10] MEDS: FLUTICASONE/VILANTEROL 100-25 INH (08:51)
[2018-07-10] MEDS: POVIDONE IODINE 10% 28.4 GM OINT TOP (09:01)
[2018-07-10] MEDS: COLLAGENASE 5 GM (UD JAR) TOP (09:01)
[2018-07-10] MEDS: POTASSIUM CHLORIDE 10 MEQ in DEXTROSE 5%-0.9% NACL 1,000 ML IV ×2 (09:11→18:06)
[2018-07-10] MEDS: METHYLPREDNISOLONE 40 MG INJ IV ×2 (10:54→22:45)
[2018-07-11] MEDS: HYDROmorphONE 0.5 MG/0.5 ML SYG IV ×7 (00:18→23:44)
[2018-07-11] MEDS: ALBUTEROL/IPRATROPIUM (NEB) 3 ML AMP HHN ×6 (00:53→21:07)
[2018-07-11] MEDS: ZOLPIDEM 5 MG TAB PO (01:17)
[2018-07-11] MEDS: POTASSIUM CHLORIDE 10 MEQ in DEXTROSE 5%-0.9% NACL 1,000 ML IV ×3 (04:19→23:40)
[2018-07-11] MEDS: PANTOPRAZOLE 40 MG INJ IV (05:49)
[2018-07-11] MEDS: ENOXAPARIN 40 MG/0.4 ML SYG SC (08:10)
[2018-07-11] MEDS: POVIDONE IODINE 10% 28.4 GM OINT TOP (08:11)
[2018-07-11] MEDS: FLUTICASONE/VILANTEROL 100-25 INH (08:11)
[2018-07-11] MEDS: COLLAGENASE 5 GM (UD JAR) TOP (08:11)
[2018-07-11] MEDS: METHYLPREDNISOLONE 40 MG INJ IV ×2 (09:16→22:21)
[2018-07-11] MEDS: LIDOCAINE 1% (MPF) 5 ML VIAL SC (10:30)
[2018-07-12] MEDS: ZOLPIDEM 5 MG TAB PO (00:11)
[2018-07-12] MEDS: ALBUTEROL/IPRATROPIUM (NEB) 3 ML AMP HHN ×6 (00:54→21:00)
[2018-07-12] MEDS: HYDROmorphONE 0.5 MG/0.5 ML SYG IV ×5 (05:26→21:09)
[2018-07-12] MEDS: PANTOPRAZOLE 40 MG INJ IV (05:36)
[2018-07-12 07:21] LABS: ADD MAN DIFF? NO
[2018-07-12 07:24] LABS: BASOPHILS % 0.1 % (0.0-2.0); EOSINOPHILS # 0.1 10^3/ul (0.0-0.5); EOSINOPHILS % 0.8 % (0.0-7.0); HEMATOCRIT 38.4 % (42.0-52.0); HEMOGLOBIN 12.6 g/dl (14.0-18.0); LYMPHOCYTES # 1.4 10^3/ul (0.8-2.9); LYMPHOCYTES % 10.1 % (15.0-51.0); MEAN CORPUSCULAR HEMOGLOBIN 34.1 pg (29.0-33.0); MEAN CORPUSCULAR HGB CONC 32.8 g/dl (32.0-37.0); MEAN CORPUSCULAR VOLUME 103.8 fl (82.0-101.0); MEAN PLATELET VOLUME 10.4 fl (7.4-10.4); MONOCYTE # 1.1 10^3/ul (0.3-0.9); MONOCYTES % 7.8 % (0.0-11.0); NEUTROPHIL # 11.5 10^3/ul (1.6-7.5); NEUTROPHILS % 80.6 % (39.0-77.0); PLATELET COUNT 226 10^3/UL (140-415); RED CELL DISTRIBUTION WIDTH 11.7 % (11.5-14.5)
[2018-07-12 07:24] LABS: WHITE BLOOD COUNT 14.2 10^3/ul (4.8-10.8)
[2018-07-12 07:44] LABS: MAGNESIUM 1.4 mg/dl (1.7-2.5)
[2018-07-12 07:44] LABS: PHOSPHORUS 2.1 mg/dl (2.5-4.9)
[2018-07-12 07:45] LABS: INR 0.77; PROTIME 10.9 Sec (11.9-14.9); PT RATIO 0.9
[2018-07-12 07:49] LABS: ALANINE AMINOTRANSFERASE 34 IU/L (13-69); ALKALINE PHOSPHATASE 55 IU/L (42-121); ANION GAP 4 (5-13); ASPARTATE AMINO TRANSFERASE 25 IU/L (15-46); BILIRUBIN,INDIRECT 0.9 mg/dl (0-1.1); BILIRUBIN,TOTAL 0.9 mg/dl (0.2-1.3); BLOOD UREA NITROGEN 6 mg/dl (7-20); CALCIUM 8.7 mg/dl (8.4-10.2); CARBON DIOXIDE 29 mmol/L (21-31); CHLORIDE 104 mmol/L (97-110); CREATININE 0.52 mg/dl (0.61-1.24); Estimated GFR > 60 mL/min (>60); GLUCOSE 61 mg/dl (70-220); POTASSIUM 3.2 mmol/L (3.5-5.1); SODIUM 137 mmol/L (135-144); TOTAL PROTEIN 5.5 g/dl (6.1-8.1)
[2018-07-12] MEDS: FLUTICASONE/VILANTEROL 100-25 INH (08:58)
[2018-07-12] MEDS: ENOXAPARIN 40 MG/0.4 ML SYG SC (09:05)
[2018-07-12] MEDS ORDERED: GLUCAGON 1 MG INJ (09:28)
[2018-07-12] MEDS: GLUCAGON 1 MG INJ IM (09:35)
[2018-07-12] MEDS: POVIDONE IODINE 10% 28.4 GM OINT TOP (09:39)
[2018-07-12] MEDS: POTASSIUM PHOSPHATE 30 MM in SOD CHLORIDE 0.9% 250 ML IVPB (11:20)
[2018-07-12] MEDS: METHYLPREDNISOLONE 40 MG INJ IV (11:25)
[2018-07-12] MEDS: MAGNESIUM SULFATE 3 GM in DEXTROSE 5% 100 ML IVPB (11:25)
[2018-07-12] MEDS: POTASSIUM CHLORIDE 10 MEQ in DEXTROSE 5%-0.9% NACL 1,000 ML IV ×2 (11:52→18:36)
[2018-07-12] MEDS: COLLAGENASE 5 GM (UD JAR) TOP (12:00)
[2018-07-12 14:27] LABS: ALANINE AMINOTRANSFERASE 33 IU/L (13-69); ALBUMIN 2.7 g/dl (3.3-4.9); ALBUMIN/GLOBULIN RATIO 1.12; ALKALINE PHOSPHATASE 49 IU/L (42-121); ANION GAP 7 (5-13); ASPARTATE AMINO TRANSFERASE 20 IU/L (15-46); BLOOD UREA NITROGEN 7 mg/dl (7-20); CALCIUM 7.8 mg/dl (8.4-10.2); CARBON DIOXIDE 24 mmol/L (21-31); CHLORIDE 102 mmol/L (97-110); CREATININE 0.46 mg/dl (0.61-1.24); Estimated GFR > 60 mL/min (>60); GLUCOSE 118 mg/dl (70-220); PHOSPHORUS 4.1 mg/dl (2.5-4.9); POTASSIUM 3.3 mmol/L (3.5-5.1); SODIUM 133 mmol/L (135-144); TOTAL PROTEIN 5.1 g/dl (6.1-8.1); TRIGLYCERIDES 79 mg/dl (0-149)
[2018-07-12 15:18] LABS: PREALBUMIN 13.2 mg/dl (17.6-36.0)
[2018-07-12] MEDS: ACCU-CHEK XX ×2 (17:00→20:28)
[2018-07-12] MEDS: TPN 1,000 ML IV (20:26)
[2018-07-12] MEDS: FAT EMULSION 20% 250 ML IV (20:27)
[2018-07-13] MEDS: ZOLPIDEM 5 MG TAB PO ×2 (00:06→21:03)
[2018-07-13] MEDS: ACCU-CHEK XX ×5 (00:13→17:00)
[2018-07-13] MEDS: ALBUTEROL/IPRATROPIUM (NEB) 3 ML AMP HHN ×6 (01:14→21:18)
[2018-07-13] MEDS: HYDROmorphONE 0.5 MG/0.5 ML SYG IV ×7 (01:17→21:38)
[2018-07-13] MEDS: PANTOPRAZOLE 40 MG INJ IV (05:18)
[2018-07-13 06:51] LABS: ADD MAN DIFF? NO
[2018-07-13 06:57] LABS: BASOPHILS % 0.1 % (0.0-2.0); EOSINOPHILS # 0.1 10^3/ul (0.0-0.5); EOSINOPHILS % 0.6 % (0.0-7.0); HEMATOCRIT 35.6 % (42.0-52.0); HEMOGLOBIN 11.8 g/dl (14.0-18.0); LYMPHOCYTES # 1.6 10^3/ul (0.8-2.9); LYMPHOCYTES % 16.8 % (15.0-51.0); MEAN CORPUSCULAR HEMOGLOBIN 34.4 pg (29.0-33.0); MEAN CORPUSCULAR HGB CONC 33.1 g/dl (32.0-37.0); MEAN CORPUSCULAR VOLUME 103.8 fl (82.0-101.0); MEAN PLATELET VOLUME 10.2 fl (7.4-10.4); MONOCYTE # 0.8 10^3/ul (0.3-0.9); MONOCYTES % 8.4 % (0.0-11.0); NEUTROPHIL # 6.9 10^3/ul (1.6-7.5); NEUTROPHILS % 73.6 % (39.0-77.0); PLATELET COUNT 191 10^3/UL (140-415); RED BLOOD COUNT 3.43 10^6/ul (4.70-6.10); RED CELL DISTRIBUTION WIDTH 11.6 % (11.5-14.5)
[2018-07-13 06:57] LABS: WHITE BLOOD COUNT 9.3 10^3/ul (4.8-10.8)
[2018-07-13 07:20] LABS: MAGNESIUM 1.6 mg/dl (1.7-2.5)
[2018-07-13 07:20] LABS: PHOSPHORUS 2.5 mg/dl (2.5-4.9)
[2018-07-13 07:21] LABS: ALANINE AMINOTRANSFERASE 33 IU/L (13-69); ALBUMIN 2.8 g/dl (3.3-4.9); ALBUMIN/GLOBULIN RATIO 1.16; ALKALINE PHOSPHATASE 48 IU/L (42-121); ANION GAP 10 (5-13); ASPARTATE AMINO TRANSFERASE 20 IU/L (15-46); BILIRUBIN,INDIRECT 0.6 mg/dl (0-1.1); BILIRUBIN,TOTAL 0.6 mg/dl (0.2-1.3); BLOOD UREA NITROGEN 6 mg/dl (7-20); CALCIUM 8.1 mg/dl (8.4-10.2); CARBON DIOXIDE 26 mmol/L (21-31); CHLORIDE 103 mmol/L (97-110); CREATININE 0.44 mg/dl (0.61-1.24); Estimated GFR > 60 mL/min (>60); GLUCOSE 86 mg/dl (70-220); POTASSIUM 3.1 mmol/L (3.5-5.1); SODIUM 139 mmol/L (135-144); TOTAL PROTEIN 5.2 g/dl (6.1-8.1)
[2018-07-13] MEDS: FLUTICASONE/VILANTEROL 100-25 INH (08:50)
[2018-07-13] MEDS: COLLAGENASE 5 GM (UD JAR) TOP (08:51)
[2018-07-13] MEDS: ENOXAPARIN 40 MG/0.4 ML SYG SC (08:52)
[2018-07-13] MEDS: POVIDONE IODINE 10% 28.4 GM OINT TOP (09:57)
[2018-07-13] MEDS: MAGNESIUM SULFATE 2 GM/50 ML 50 ML IVPB (10:02)
[2018-07-13] MEDS: POTASSIUM CHLORIDE 100 ML IVPB ×2 (12:10→15:09)
[2018-07-13] MEDS: TPN 1,000 ML IV (15:16)
[2018-07-13] MEDS: FAT EMULSION 20% 250 ML IV (21:03)
[2018-07-14] MEDS: ALBUTEROL/IPRATROPIUM (NEB) 3 ML AMP HHN ×6 (00:37→21:03)
[2018-07-14] MEDS: HYDROmorphONE 0.5 MG/0.5 ML SYG IV ×4 (00:40→09:55)
[2018-07-14] MEDS: PANTOPRAZOLE 40 MG INJ IV (05:40)
[2018-07-14 05:50] LABS: ADD MAN DIFF? NO
[2018-07-14] MEDS: ACCU-CHEK XX ×4 (06:00→18:30)
[2018-07-14 06:15] LABS: WHITE BLOOD COUNT 10.4 10^3/ul (4.8-10.8)
[2018-07-14 06:15] LABS: BASOPHILS % 0.1 % (0.0-2.0); EOSINOPHILS # 0.1 10^3/ul (0.0-0.5); EOSINOPHILS % 1.1 % (0.0-7.0); HEMATOCRIT 34.1 % (42.0-52.0); HEMOGLOBIN 11.5 g/dl (14.0-18.0); LYMPHOCYTES # 1.1 10^3/ul (0.8-2.9); LYMPHOCYTES % 10.3 % (15.0-51.0); MEAN CORPUSCULAR HEMOGLOBIN 34.4 pg (29.0-33.0); MEAN CORPUSCULAR HGB CONC 33.7 g/dl (32.0-37.0); MEAN CORPUSCULAR VOLUME 102.1 fl (82.0-101.0); MEAN PLATELET VOLUME 10.8 fl (7.4-10.4); MONOCYTE # 0.7 10^3/ul (0.3-0.9); MONOCYTES % 6.7 % (0.0-11.0); NEUTROPHIL # 8.4 10^3/ul (1.6-7.5); NEUTROPHILS % 81.3 % (39.0-77.0); PLATELET COUNT 153 10^3/UL (140-415); RED BLOOD COUNT 3.34 10^6/ul (4.70-6.10); RED CELL DISTRIBUTION WIDTH 11.7 % (11.5-14.5)
[2018-07-14 06:35] LABS: PHOSPHORUS 2.1 mg/dl (2.5-4.9)
[2018-07-14 06:35] LABS: MAGNESIUM 1.6 mg/dl (1.7-2.5)
[2018-07-14 06:56] LABS: ALBUMIN/GLOBULIN RATIO 1.26; ANION GAP 8 (5-13); BILIRUBIN,TOTAL 0.5 mg/dl (0.2-1.3); Estimated GFR > 60 mL/min (>60)
[2018-07-14 07:03] LABS: ALANINE AMINOTRANSFERASE 23 IU/L (13-69); ALBUMIN 2.9 g/dl (3.3-4.9); ALKALINE PHOSPHATASE 53 IU/L (42-121); ASPARTATE AMINO TRANSFERASE 23 IU/L (15-46); BILIRUBIN,INDIRECT 0.5 mg/dl (0-1.1); BLOOD UREA NITROGEN 7 mg/dl (7-20); CALCIUM 8.4 mg/dl (8.4-10.2); CARBON DIOXIDE 25 mmol/L (21-31); CHLORIDE 104 mmol/L (97-110); CREATININE 0.43 mg/dl (0.61-1.24); GLUCOSE 89 mg/dl (70-220); POTASSIUM 3.7 mmol/L (3.5-5.1); SODIUM 137 mmol/L (135-144); TOTAL PROTEIN 5.2 g/dl (6.1-8.1)
[2018-07-14] MEDS: TPN 1,000 ML IV ×2 (08:09→22:18)
[2018-07-14] MEDS: COLLAGENASE 5 GM (UD JAR) TOP (08:59)
[2018-07-14] MEDS: POVIDONE IODINE 10% 28.4 GM OINT TOP (09:00)
[2018-07-14] MEDS: ENOXAPARIN 40 MG/0.4 ML SYG SC (09:00)
[2018-07-14] MEDS: FLUTICASONE/VILANTEROL 100-25 INH (09:01)
[2018-07-14] MEDS: KETOROLAC 15 MG INJ IV (13:14)
[2018-07-14] MEDS: MAGNESIUM SULFATE 1 GM/D5W 100 ML IVPB (14:22)
[2018-07-14] MEDS: HYDROCODONE/APAP (5/325) TAB PO ×2 (16:16→20:39)
[2018-07-14] MEDS: POTASSIUM PHOSPHATE 15 MM in SOD CHLORIDE 0.9% 250 ML IV (16:17)
[2018-07-14] MEDS ORDERED: ACCU-CHEK XX (18:00)
[2018-07-14] MEDS: FAT EMULSION 20% 250 ML IV (21:14)
[2018-07-15] MEDS: ALBUTEROL/IPRATROPIUM (NEB) 3 ML AMP HHN ×6 (00:35→20:30)
[2018-07-15] MEDS: PANTOPRAZOLE 40 MG INJ IV (05:07)
[2018-07-15] MEDS: HYDROCODONE/APAP (5/325) TAB PO ×4 (05:08→17:49)
[2018-07-15] MEDS: ACCU-CHEK XX ×4 (06:00→17:21)
[2018-07-15 06:19] LABS: ANION GAP 9 (5-13); BLOOD UREA NITROGEN 8 mg/dl (7-20); CALCIUM 8.4 mg/dl (8.4-10.2); CARBON DIOXIDE 25 mmol/L (21-31); CHLORIDE 107 mmol/L (97-110); CREATININE 0.45 mg/dl (0.61-1.24); Estimated GFR > 60 mL/min (>60); GLUCOSE 101 mg/dl (70-220); MAGNESIUM 1.7 mg/dl (1.7-2.5); PHOSPHORUS 2.8 mg/dl (2.5-4.9); POTASSIUM 4.1 mmol/L (3.5-5.1); SODIUM 141 mmol/L (135-144)
[2018-07-15] MEDS: KETOROLAC 15 MG INJ IV (08:20)
[2018-07-15] MEDS: POVIDONE IODINE 10% 28.4 GM OINT TOP (08:21)
[2018-07-15] MEDS: FLUTICASONE/VILANTEROL 100-25 INH (08:21)
[2018-07-15] MEDS: COLLAGENASE 5 GM (UD JAR) TOP (08:21)
[2018-07-15] MEDS: ENOXAPARIN 40 MG/0.4 ML SYG SC (08:22)
[2018-07-15] MEDS: DIATR MEGLU/DIATRIZOATE SODIUM 120 ML BTL (13:34)
[2018-07-15] MEDS: ZOLPIDEM 5 MG TAB PO (23:15)
[2018-07-16] MEDS: ALBUTEROL/IPRATROPIUM (NEB) 3 ML AMP HHN ×5 (01:00→17:05)
[2018-07-16] MEDS: ACCU-CHEK XX ×2 (06:00)
[2018-07-16] MEDS: ONDANSETRON 4 MG INJ IV (06:07)
[2018-07-16] MEDS: HYDROCODONE/APAP (5/325) TAB PO ×3 (06:08→18:24)
[2018-07-16] MEDS: FLUTICASONE/VILANTEROL 100-25 INH (09:13)
[2018-07-16] MEDS: POVIDONE IODINE 10% 28.4 GM OINT TOP (09:13)
[2018-07-16] MEDS: COLLAGENASE 5 GM (UD JAR) TOP (09:13)
[2018-07-16] MEDS: ENOXAPARIN 40 MG/0.4 ML SYG SC (09:14)
[2018-07-16] MEDS: IOHEXOL 14.3 MG(I)/ML (ADULT) BTL PO (11:23)
[2018-07-17] MEDS: SOD CHLORIDE 0.9% 1,000 ML IV (02:59)
[2018-07-17] MEDS: HYDROCODONE/APAP (5/325) TAB PO ×3 (02:59→22:00)
[2018-07-17 06:47] LABS: ANION GAP 11 (5-13); BLOOD UREA NITROGEN 10 mg/dl (7-20); CALCIUM 8.3 mg/dl (8.4-10.2); CARBON DIOXIDE 28 mmol/L (21-31); CHLORIDE 98 mmol/L (97-110); CREATININE 0.46 mg/dl (0.61-1.24); Estimated GFR > 60 mL/min (>60); GLUCOSE 65 mg/dl (70-220); MAGNESIUM 1.3 mg/dl (1.7-2.5); POTASSIUM 4.3 mmol/L (3.5-5.1); SODIUM 137 mmol/L (135-144)
[2018-07-17] MEDS: DEXTROSE 5%-0.45% NACL 1,000 ML IV ×2 (09:25→18:54)
[2018-07-17] MEDS: FLUTICASONE/VILANTEROL 100-25 INH (09:30)
[2018-07-17] MEDS: POVIDONE IODINE 10% 28.4 GM OINT TOP (09:30)
[2018-07-17] MEDS: COLLAGENASE 5 GM (UD JAR) TOP (09:30)
[2018-07-17] MEDS: ENOXAPARIN 40 MG/0.4 ML SYG SC (09:31)
[2018-07-17] MEDS: ALTEPLASE (CATHFLO) 2 MG INJ CATHETER (22:06)
[2018-07-17] MEDS: ZOLPIDEM 5 MG TAB PO (22:53)
[2018-07-17] MEDS: GUAIFENESIN 20 MG/ML 5ML CUP PO (23:22)
[2018-07-18 04:50] LABS: ADD MAN DIFF? NO
[2018-07-18 04:52] LABS: BASOPHILS % 0.1 % (0.0-2.0); EOSINOPHILS # 0.2 10^3/ul (0.0-0.5); EOSINOPHILS % 1.6 % (0.0-7.0); HEMOGLOBIN 10.9 g/dl (14.0-18.0); LYMPHOCYTES # 0.9 10^3/ul (0.8-2.9); LYMPHOCYTES % 9.7 % (15.0-51.0); MEAN CORPUSCULAR VOLUME 102.8 fl (82.0-101.0); MEAN PLATELET VOLUME 10.3 fl (7.4-10.4); MONOCYTE # 0.5 10^3/ul (0.3-0.9); MONOCYTES % 5.7 % (0.0-11.0); NEUTROPHIL # 7.7 10^3/ul (1.6-7.5); NEUTROPHILS % 82.6 % (39.0-77.0); PLATELET COUNT 177 10^3/UL (140-415); RED BLOOD COUNT 3.21 10^6/ul (4.70-6.10); RED CELL DISTRIBUTION WIDTH 11.8 % (11.5-14.5)
[2018-07-18 04:52] LABS: WHITE BLOOD COUNT 9.4 10^3/ul (4.8-10.8)
[2018-07-18 05:20] LABS: ANION GAP 8 (5-13); BLOOD UREA NITROGEN 6 mg/dl (7-20); CALCIUM 8.3 mg/dl (8.4-10.2); CARBON DIOXIDE 26 mmol/L (21-31); CHLORIDE 103 mmol/L (97-110); CREATININE 0.44 mg/dl (0.61-1.24); Estimated GFR > 60 mL/min (>60); GLUCOSE 87 mg/dl (70-220); SODIUM 137 mmol/L (135-144)
[2018-07-18 05:22] LABS: POTASSIUM 3.6 mmol/L (3.5-5.1)
[2018-07-18] MEDS: HYDROCODONE/APAP (5/325) TAB PO ×3 (06:32→23:10)
[2018-07-18] MEDS: DEXTROSE 5%-0.45% NACL 1,000 ML IV ×3 (06:32→15:49)
[2018-07-18] MEDS: FLUTICASONE/VILANTEROL 100-25 INH (08:28)
[2018-07-18] MEDS: COLLAGENASE 5 GM (UD JAR) TOP (08:28)
[2018-07-18] MEDS: ENOXAPARIN 40 MG/0.4 ML SYG SC (08:30)
[2018-07-18] MEDS: POVIDONE IODINE 10% 28.4 GM OINT TOP (13:45)
[2018-07-18] MEDS: GUAIFENESIN 20 MG/ML 5ML CUP PO (15:55)
[2018-07-18] MEDS: traMADol 50 MG TAB PO (16:41)
[2018-07-18] MEDS: MAGNESIUM SULFATE 4 GM/100 ML 100 ML IVPB (18:21)
[2018-07-18] MEDS: POTASSIUM CHLORIDE 100 ML IVPB ×2 (19:55→21:59)
[2018-07-18] MEDS: ALBUTEROL/IPRATROPIUM (NEB) 3 ML AMP HHN (22:34)
[2018-07-19] MEDS: traMADol 50 MG TAB PO ×4 (00:19→20:22)
[2018-07-19] MEDS: DEXTROSE 5%-0.45% NACL 1,000 ML IV ×3 (01:15→20:00)
[2018-07-19] MEDS: ALBUTEROL/IPRATROPIUM (NEB) 3 ML AMP HHN ×3 (05:58→21:14)
[2018-07-19 07:05] LABS: ANION GAP 10 (5-13); BLOOD UREA NITROGEN 4 mg/dl (7-20); CARBON DIOXIDE 27 mmol/L (21-31); CHLORIDE 101 mmol/L (97-110); CREATININE 0.42 mg/dl (0.61-1.24); Estimated GFR > 60 mL/min (>60); GLUCOSE 102 mg/dl (70-220); MAGNESIUM 1.9 mg/dl (1.7-2.5); POTASSIUM 3.6 mmol/L (3.5-5.1); SODIUM 138 mmol/L (135-144)
[2018-07-19] MEDS: HYDROCODONE/APAP (5/325) TAB PO ×2 (08:10→16:43)
[2018-07-19] MEDS: FLUTICASONE/VILANTEROL 100-25 INH (08:11)
[2018-07-19] MEDS: ENOXAPARIN 40 MG/0.4 ML SYG SC (08:12)
[2018-07-19] MEDS: COLLAGENASE 5 GM (UD JAR) TOP (08:14)
[2018-07-19] MEDS: POVIDONE IODINE 10% 28.4 GM OINT TOP (08:15)
[2018-07-19] MEDS: POTASSIUM CHLORIDE 100 ML IVPB ×2 (14:47→16:54)
[2018-07-19] MEDS: ZOLPIDEM 5 MG TAB PO (22:22)
[2018-07-20] MEDS: DEXTROSE 5%-0.45% NACL 1,000 ML IV ×3 (02:12→21:58)
[2018-07-20] MEDS: traMADol 50 MG TAB PO ×4 (02:57→21:57)
[2018-07-20] MEDS: HYDROCODONE/APAP (5/325) TAB PO ×3 (04:35→20:55)
[2018-07-20] MEDS: ALBUTEROL/IPRATROPIUM (NEB) 3 ML AMP HHN ×2 (05:59→17:59)
[2018-07-20 06:18] LABS: ANION GAP 9 (5-13); BLOOD UREA NITROGEN 3 mg/dl (7-20); CALCIUM 8.3 mg/dl (8.4-10.2); CARBON DIOXIDE 27 mmol/L (21-31); CHLORIDE 100 mmol/L (97-110); CREATININE 0.46 mg/dl (0.61-1.24); Estimated GFR > 60 mL/min (>60); GLUCOSE 92 mg/dl (70-220); MAGNESIUM 1.5 mg/dl (1.7-2.5); PHOSPHORUS 3.1 mg/dl (2.5-4.9); POTASSIUM 4.1 mmol/L (3.5-5.1); SODIUM 136 mmol/L (135-144)
[2018-07-20] MEDS: MAGNESIUM SULFATE 2 GM/50 ML 50 ML IVPB ×2 (08:58→18:25)
[2018-07-20] MEDS: ENOXAPARIN 40 MG/0.4 ML SYG SC (08:58)
[2018-07-20] MEDS: POVIDONE IODINE 10% 28.4 GM OINT TOP (09:01)
[2018-07-20] MEDS: COLLAGENASE 5 GM (UD JAR) TOP (09:01)
[2018-07-20] MEDS: FLUTICASONE/VILANTEROL 100-25 INH (11:01)
[2018-07-20] MEDS ORDERED: MAGNESIUM SULFATE 4 GM/100 ML 100 ML IVPB (17:00)
[2018-07-20] MEDS ORDERED: MAGNESIUM SULFATE 2 GM/50 ML 50 ML IVPB (18:00)
[2018-07-20] MEDS: POTASSIUM CHLORIDE 100 ML IVPB (18:19)
[2018-07-20] MEDS: CALCIUM CARBONATE 500 MG CHEW TAB PO (20:26)
[2018-07-21] MEDS: CALCIUM CARBONATE 500 MG CHEW TAB PO ×3 (00:51→18:44)
[2018-07-21] MEDS: ZOLPIDEM 5 MG TAB PO ×2 (00:52→23:51)
[2018-07-21] MEDS: traMADol 50 MG TAB PO ×3 (04:11→19:51)
[2018-07-21] MEDS: ALBUTEROL/IPRATROPIUM (NEB) 3 ML AMP HHN ×3 (05:52→21:51)
[2018-07-21 05:53] LABS: ANION GAP 4 (5-13); BLOOD UREA NITROGEN 3 mg/dl (7-20); CALCIUM 8.7 mg/dl (8.4-10.2); CARBON DIOXIDE 29 mmol/L (21-31); CHLORIDE 104 mmol/L (97-110); CREATININE 0.45 mg/dl (0.61-1.24); Estimated GFR > 60 mL/min (>60); GLUCOSE 96 mg/dl (70-220); MAGNESIUM 1.8 mg/dl (1.7-2.5); POTASSIUM 4.2 mmol/L (3.5-5.1); SODIUM 137 mmol/L (135-144)
[2018-07-21] MEDS: HYDROCODONE/APAP (5/325) TAB PO ×3 (06:11→22:49)
[2018-07-21] MEDS: COLLAGENASE 5 GM (UD JAR) TOP (08:43)
[2018-07-21] MEDS: FLUTICASONE/VILANTEROL 100-25 INH (08:44)
[2018-07-21] MEDS: ENOXAPARIN 40 MG/0.4 ML SYG SC (08:44)
[2018-07-21] MEDS: POVIDONE IODINE 10% 28.4 GM OINT TOP (08:46)
[2018-07-21] MEDS: DEXTROSE 5%-0.45% NACL 1,000 ML IV ×2 (09:43→22:00)
[2018-07-22] MEDS: traMADol 50 MG TAB PO (04:18)
[2018-07-22] MEDS: DEXTROSE 5%-0.45% NACL 1,000 ML IV (04:20)
[2018-07-22] MEDS: ALBUTEROL/IPRATROPIUM (NEB) 3 ML AMP HHN ×2 (05:15→13:30)
[2018-07-22 06:17] LABS: ANION GAP 9 (5-13); BLOOD UREA NITROGEN 6 mg/dl (7-20); CALCIUM 8.9 mg/dl (8.4-10.2); CARBON DIOXIDE 26 mmol/L (21-31); CHLORIDE 102 mmol/L (97-110); Estimated GFR > 60 mL/min (>60); GLUCOSE 84 mg/dl (70-220); MAGNESIUM 1.4 mg/dl (1.7-2.5); PHOSPHORUS 3.7 mg/dl (2.5-4.9); POTASSIUM 4.1 mmol/L (3.5-5.1); SODIUM 137 mmol/L (135-144)
[2018-07-22] MEDS: HYDROCODONE/APAP (5/325) TAB PO (06:57)
[2018-07-22] MEDS: CALCIUM CARBONATE 500 MG CHEW TAB PO (07:58)
[2018-07-22] MEDS: ENOXAPARIN 40 MG/0.4 ML SYG SC (08:00)
[2018-07-22] MEDS: FLUTICASONE/VILANTEROL 100-25 INH (08:00)
[2018-07-22] MEDS: COLLAGENASE 5 GM (UD JAR) TOP (08:00)
[2018-07-22] MEDS: POVIDONE IODINE 10% 28.4 GM OINT TOP (08:01)
== END 2018-07-22 16:01 | disposition home health service (06) | DRG 388 ==
LOC: PP2 07-08 14:39 → TEL 19:15
PROC: 0D9670Z Drainage of Stomach with Drainage Device, Via Natural or Artificial Opening (ICD-10-PCS; principal; 2018-07-06)
PROC: 02HV33Z Insertion of Infusion Device into Superior Vena Cava, Percutaneous Approach (ICD-10-PCS; 2018-07-12)
PROC: 3E0436Z Introduction of Nutritional Substance into Central Vein, Percutaneous Approach (ICD-10-PCS; 2018-07-12)
DX: K56.51 Intestinal adhesions [bands], with partial obstruction (principal); J18.9 Pneumonia, unspecified organism; E43 Unspecified severe protein-calorie malnutrition; J44.1 Chronic obstructive pulmonary disease with (acute) exacerbation; N17.9 Acute kidney failure, unspecified; Z68.1 Body mass index [BMI] 19.9 or less, adult; D53.9 Nutritional anemia, unspecified; E86.0 Dehydration; F17.200 Nicotine dependence, unspecified, uncomplicated; F10.20 Alcohol dependence, uncomplicated; I10 Essential (primary) hypertension; M19.90 Unspecified osteoarthritis, unspecified site; Z90.49 Acquired absence of other specified parts of digestive tract
CPT/HCPCS: 36569; 71045; 71260; 73700; 74018; 74019; 74177; 74250; 76937; 80048; 80053; 80061; 82962; 83036; 83690; 83735; 84100; 84134; 84443; 84478; 85025; 85610; 85730; 87075; 90686; 94640; 94644; 94664; 97110; 97116; 97161; 97530